=== PATIENT | female | born 1940 | race Caucasian/White ===

== ENCOUNTER 2019-03-24 10:37 | Day surgery (SDC) | payer MEDICARE, BC ==
[2019-03-17 15:52] VITALS: BMI 22.6
[~2019-03-24 10:37] MED LIST: ALPRAZolam 0.25 MG TAB PO PRN; ALPRAZolam 0.5 MG TAB PO PRN; ASPIRIN 325 MG TAB PO ONE; ATORVASTATIN 80 MG TAB PO ONE; NITROGLYCERIN SL TABS 0.4 MG TAB SUBLINGUAL PRN; SODIUM CHLORIDE 0.9% 1,000 ML in EMPTY BAG 1 BAG IV ONE
[2019-03-24 11:41] VITALS: RESP 20; TEMP 97.6
[2019-03-24] MEDS ORDERED: LIDOCAINE 1% INJ 10MG/ML (20 ML MDV) ONE (12:06)
[2019-03-24] MEDS ORDERED: VERAPAMIL 2.5 MG/ML 2 ML AMP ONE (12:06)
[2019-03-24] MEDS ORDERED: MIDAZOLAM (PF) 2 MG/2 ML VIAL IV ONE (12:35)
[2019-03-24] MEDS ORDERED: SODIUM CHLORIDE 0.9% 1,000 ML IV ONE (12:35)
[2019-03-24] MEDS ORDERED: LIDOCAINE 1% INJ 10MG/ML (20 ML MDV) SQ ONE (12:38)
[2019-03-24] MEDS ORDERED: IOPAMIDOL-370 100ML BTL INJ ONE (12:50)
[2019-03-24] MEDS ORDERED: RX INFO: IV CONTRAST WAS GIVEN 1 EACH MISC MISCELLANE PRN (13:01)
[2019-03-24] MEDS ORDERED: SODIUM CHLORIDE 0.9% 1,000 ML IV SCH (13:15)
--- NOTE | 2019-03-24 13:35 | CC ---
CARDIAC CATHETERIZATION REPORT DATE OF SERVICE: March 24, 2019 PERFORMING PHYSICIAN: Ken Suarez MD. PROCEDURE PERFORMED: 1. Selective right and left coronary angiogram. 2. Left heart catheterization. INDICATION: This is a pleasant 79-year-old female patient with history of hypertension as well as dyslipidemia who continues to have exertional dyspnea. She underwent noninvasive testing came in to be unremarkable and because of that, a heart catheterization was advised. APPROACH: Right common femoral artery. COMPLICATION: None. LEVEL OF SEDATION: Moderate with sedation length of 19 minutes. PROCEDURE DESCRIPTION: After obtaining an informed consent, the patient was brought to the cardiac laborer syrup machine. The right common femoral artery was cannulated using micropuncture technique, the micropuncture wire passed easily then I placed a 6-Mongolian sheath. I did selective right and left coronary angiogram with JR3.5 and JL3.5 catheters. Left heart catheterization was performed using 6-Mongolian pigtail catheter. The procedure was completed without any complication. SELECTIVE CORONARY ANGIOGRAM: 1. The right coronary artery is a large caliber vessel. It is a dominant vessel and appeared to be angiographically normal. 2. The left main is normal. It bifurcates into the circumflex and left anterior descending artery. 3. The left circumflex is a large caliber vessel. It is a nondominant vessel. The left circumflex has mild disease only. In the midportion, it gives rise into an OM branch which seems to be normal. 4. The LAD: The proximal LAD appeared to be angiographically normal. The mid LAD has a tubular lesion appeared to be diseased up to about 50% to 60%. The LAD in that area gives rise into a diagonal branch which seems to be angiographically normal. The second diagonal branch seems to be angiographically normal. The LAD reached the apex. HEMODYNAMICS: The left ventricular end-diastolic pressure was about 10 to 12 mmHg without significant gradient across the aortic valve. CONCLUSION: Intermediate disease involving the mid LAD with a tubular lesion appeared to be in the range of 50% to 60%. POSTPROCEDURE MANAGEMENT: 1. Maximize medical treatment. 2. Risk factors modifications. 3. If the patient continues to be symptomatic, she might consider either stress test to assess for ischemia in the LAD or FFR of the LAD. MMODL / IJN: [id number] /
[2019-03-24 17:20] VITALS: BP 124/59
== END 2019-03-24 17:50 | disposition home or self-care (01) ==
LOC: CATHCVL 10:37
PROVIDERS: ATTEND Internal Medicine Interventional Cardiology
DX: I25.10 Atherosclerotic heart disease of native coronary artery without angina pectoris (principal); I10 Essential (primary) hypertension; E78.5 Hyperlipidemia, unspecified; Z82.49 Family history of ischemic heart disease and other diseases of the circulatory system; I73.9 Peripheral vascular disease, unspecified; Z79.899 Other long term (current) drug therapy
CPT/HCPCS: 93458; C1769; C1894; J2001; Q9967; J2250

== ENCOUNTER → 2023-12-31 | Day surgery (SDC) | payer MEDICARE, BC ==
[~2023-12-31] MED LIST changes: -ASPIRIN 325 MG TAB PO ONE; +ASPIRIN 325 MG TAB PO STA; -ATORVASTATIN 80 MG TAB PO ONE; +BUDESONIDE 0.5 MG/2 ML NEBU INHALATION STA; +HEPARIN SODIUM 1,000 UN/ML (10ML VL) ONE; +HEPARIN SODIUM,PORCINE (1 ML) 2,500 UNIT in SODIUM CHLORIDE 0.9% 250 ML IRRIGATION PRN; +HEPARIN SODIUM,PORCINE 10,000 UNIT in SODIUM CHLORIDE 0.9% 1,000 ML IRRIGATION PRN; +RX INFO: IV CONTRAST WAS GIVEN 1 EACH MISC MISCELLANE PRN; +SODIUM CHLORIDE 0.9% 1,000 ML IV SCH; -SODIUM CHLORIDE 0.9% 1,000 ML in EMPTY BAG 1 BAG IV ONE; +VERAPAMIL 2.5 MG/ML 2 ML AMP ONE
[2023-12-31] MEDS: SODIUM CHLORIDE 0.9% 1,000 ML in EMPTY BAG 1 BAG IV SCH (06:20)
[2023-12-31 06:46] LABS: Basophils # (A) 0.1 k/uL (0-0.2); Basophils % (A) 1 %; Eosinophils # (A) 0.2 k/uL (0-0.7); Eosinophils % (A) 5 %; HCT 39.7 % (34.0-46.0); HGB 12.9 gm/dL (11.4-16.0); Lymphocytes # (A) 0.9 k/uL (1.0-4.8); Lymphocytes % (A) 19 %; MCH 32.7 pg (25.0-35.0); MCHC 32.6 g/dL (31.0-37.0); MCV 100.3 fL (80.0-100.0); Mean Platelet Volume 8.4; Monocytes # (A) 0.4 k/uL (0-1.0); Monocytes % (A) 9 %; Neutrophils % (A) 64 %; Platelet Count 267 k/uL (150-450); RBC 3.96 m/uL (3.80-5.40); RDW 13.1 % (11.5-15.5); WBC 4.8 k/uL (3.8-10.6)
[2023-12-31 06:55] LABS: African American GFR (CKD) >90 (>60 ml/min/1.73 sqM); Anion Gap 6 mmol/L; Blood Urea Nitrogen 13 mg/dL (7-17); Calcium 9.4 mg/dL (8.4-10.2); Carbon Dioxide 24 mmol/L (22-30); Chloride 111 mmol/L (98-107); Glucose 100 mg/dL (74-99); Non-African American GFR(CKD) 85 (>60 ml/min/1.73 sqM); Potassium 3.9 mmol/L (3.5-5.1); Sodium 141 mmol/L (137-145)
[2023-12-31 06:56] VITALS: TEMP 97.9
[2023-12-31] MEDS: MIDAZOLAM 2 MG/2 ML VIAL IVP ONE (07:48)
[2023-12-31] MEDS: LIDOCAINE 2% (PF) 20 MG/ML 5 ML VIAL SQ ONE (07:50)
[2023-12-31] MEDS: VERAPAMIL SYRINGE (5 MG/10 ML) INTRAARTER ONE (07:51)
[2023-12-31] MEDS: HEPARIN SODIUM 1,000 UN/ML (10ML VL) IV ONE (07:54)
[2023-12-31] MEDS: IOPAMIDOL-370 100ML BTL INJ ONE ×2 (08:15→08:32)
--- NOTE | 2023-12-31 08:40 | P.PCN ---
Date of Procedure: 12/31/23 Operative Findings: CARDIAC CATHETERIZATION PERFORMING PHYSICIAN: Ken Suarez MD, RPVI PROCEDURE PERFORMED: 1. Selective right and left coronary angiogram 2. Left heart catheterization 3. Ultrasound-guided access of the right radial artery 4. IFR of the LCx INDICATION: Symptomatic 83-year-old female patient who is known to have CAD and underwent myocardial perfusion imaging stress test came in to be abnormal COMPLICATION: None APPROACH: Right radial artery LEVEL OF SEDATION: Moderate with a sedation length of 44 minutes PROCEDURE DESCRIPTION: After obtaining an informed consent, the patient was brought to cardiac bobcat driver/labor. Local anesthesia was performed using lidocaine subcutaneously. The right radial artery was cannulated using Seldinger technique, the guidewire passed easily, following that we advanced a 5-Swazi sheath dilator assembly, the wire and dilator were removed and sheath was flushed. Following that, 2 mg of verapamil along with 5000 unit heparin were given. Selective right and left coronary angiogram using a 6-Swazi JR4 and JL 3.5 catheters. Following that we did left heart catheterization using 6-Swazi pigtail catheter. After that we decided to do an FFR of the LCx and LAD with after zeroing the Doppler wire and equalizing between the Doppler wire and guiding catheter which was JL 3.5 guiding catheter the left main was engaged and the left circumflex was wired. The IFR of the left circumflex came to be at 0.97 The procedure was completed there was no complication. SELECTIVE CORONARY ANGIOGRAM: The right coronary artery: Large-caliber vessel and a dominant vessel with mild disease only Left main: Not exist The left circumflex: Large-caliber vessel nondominant vessel with intermediate disease documented to be nonflow limiting by Doppler wire The left anterior descending artery: Has intermediate disease in the proximal portion. Gives rise into a large diagonal branch which also has intermediate disease HEMODYNAMICS: The LVEDP was 13 mmHg with no significant gradient across aortic valve CONCLUSION: 1. Intermediate disease involving the LCx documented to be normal flow-limiting by Doppler wire 2. Intermediate disease involving the LAD and diagonal. POSTPROCEDURE MANAGEMENT: FFR of the LAD and diagonal
[2023-12-31 12:44] VITALS: BP 114/88; PULSE 62; RESP 16
== END ==
LOC: CATHCVL 05:42
PROVIDERS: ATTEND Internal Medicine Interventional Cardiology
DX: I25.10 Atherosclerotic heart disease of native coronary artery without angina pectoris (principal); I34.0 Nonrheumatic mitral (valve) insufficiency; I48.0 Paroxysmal atrial fibrillation; E78.5 Hyperlipidemia, unspecified; I10 Essential (primary) hypertension; Z79.01 Long term (current) use of anticoagulants; Z79.899 Other long term (current) drug therapy
CPT/HCPCS: 93458; 93799; 76937; 80048; 85025; J2250; J1644; Q9967; J2001